=== PATIENT | female | born 2000 | race Caucasian/White ===

== ENCOUNTER 2019-06-13 10:15 | Emergency (ER) | payer OTHER, SELFPAY ==
[2019-06-13 10:16] VITALS: BP 135/88; PULSE 86; RESP 16; TEMP 36.9; BMI 25.7
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
[2019-06-13] MEDS: Diphth,Pertuss(Acell),Tet Vac 0.5 ML Vial IM (11:29)
[2019-06-13 11:33] VITALS: BP 125/67; PULSE 77
== END 2019-06-13 11:36 | disposition home or self-care (01) ==
PROVIDERS: Emergency Provider Emergency Medicine; Family Provider Family Medicine; PCP Family Medicine
DX: S81.012A Laceration without foreign body, left knee, initial encounter (principal); V49.49XA Driver injured in collision with other motor vehicles in traffic accident, initial encounter; Y93.9 Activity, unspecified; Y92.410 Unspecified street and highway as the place of occurrence of the external cause; Y99.9 Unspecified external cause status
CPT/HCPCS: 12002; 90471; 90715; 99284